=== PATIENT | female | born 2000 | race Caucasian/White ===

== ENCOUNTER 2023-11-13 15:46 | Emergency (ER) | payer SELFPAY ==
[~2023-11-13] VITALS: Ht 165.1 cm; Wt 72.6 kg
[2023-11-13 16:17] VITALS: O2SAT 97
[2023-11-13] MEDS ORDERED: KETOROLAC 30MG/ML VIAL IM ONE (17:15)
[2023-11-13 19:26] VITALS: BP 134/78; PULSE 88; RESP 16; TEMP 98.2
[2023-11-15] MEDS ORDERED: PENI500T MT (14:16)
== END 2023-11-13 19:35 | disposition home or self-care (01) ==
LOC: ER 15:46
DX: J02.0 Streptococcal pharyngitis (principal)
CPT/HCPCS: 99283; 81025; 87430; 96372; J1885